=== PATIENT | female | born 1980 | race Hispanic/Latino ===

== ENCOUNTER 2021-10-05 12:01 | Outpatient (CLI) | payer OTHER | END 2021-10-05 12:02 | disposition home or self-care (01) | LOC: NM 12:01 | PROVIDERS: ATTEND Internal Medicine Endocrinology, Diabetes & Metabolism | DX: C73 Malignant neoplasm of thyroid gland (principal); E89.0 Postprocedural hypothyroidism | CPT/HCPCS: 36415; 79005; 84702; A9517 ==

== ENCOUNTER 2021-10-15 11:31 | Outpatient (CLI) | payer OTHER | END 2021-10-15 11:32 | disposition home or self-care (01) | LOC: NM 11:31 | PROVIDERS: ATTEND Internal Medicine Endocrinology, Diabetes & Metabolism | DX: C73 Malignant neoplasm of thyroid gland (principal); E89.0 Postprocedural hypothyroidism | CPT/HCPCS: 78018 ==